=== PATIENT | male | born 1955 | race Caucasian/White ===

== ENCOUNTER 2018-12-07 12:09 | Day surgery (SDC) | payer OTHER ==
[~2018-12-07] VITALS: Ht 175.3 cm; Wt 73.1 kg
[2018-12-07 13:35] VITALS: Ht 175.3 cm; Wt 73.1 kg
[2018-12-07] MEDS ORDERED: BENAZEPRIL (13:41)
[2018-12-07 13:49] VITALS: BP 160/83; PULSE 53; RESP 18
[2018-12-07] MEDS ORDERED: FENTAnyl 50 MCG/ML VIAL ONE (14:43)
[2018-12-07] MEDS ORDERED: MIDAZOLAM 1 MG/ML 2 ML INJ ONE ×2 (14:43)
[2018-12-07 14:53] VITALS: BP 146/93; PULSE 72; RESP 16
== END 2018-12-07 14:56 | disposition home or self-care (01) ==
LOC: GIL 12:09
PROVIDERS: ATTEND Internal Medicine Gastroenterology
DX: Z12.11 Encounter for screening for malignant neoplasm of colon (principal); D12.0 Benign neoplasm of cecum; D12.8 Benign neoplasm of rectum; K64.8 Other hemorrhoids
CPT/HCPCS: 45380; 45385; 88305; J2250; J3010